=== PATIENT | female | born 1970 | race American Indian/Alaskan Native ===

== ENCOUNTER 2021-06-05 16:45 | Outpatient (CLI) | payer BC ==
--- NOTE | 2021-06-06 15:18 | Mammography Report ---
DIGITAL SCREENING MAMMOGRAM WITH CAD, 06/05/2021 CLINICAL INFORMATION / INDICATION: Routine screening mammography. SCREENING MAMMO Z12.31 TECHNIQUE: Digital bilateral 2D mammography was obtained in the craniocaudal and mediolateral obliqu e projections. This examination was interpreted with the benefit of Computer-Aided Detection analysis . COMPARISON: 04/19/2018 FINDINGS: Breast Density: There are scattered areas of fibroglandular density. No dominant mass, suspicious calcifications, or architectural distortion in either breast. There is a new vague density in the right breast, middle depth, best seen on the CC image. Overall th is appears to be along the lower inner breast. IMPRESSION: Right breast finding as above. Recommend follow-up compression imaging. Follow up recommendation: Special View: Spot BI-RADS Category 0: Incomplete. Needs additional imaging evaluation and/or prior mammograms for von rison. A "normal" or negative report should not discourage follow up or biopsy of a clinically significant f inding. A written summary of these findings will be mailed to the patient. The patient will be entered into a mammography reporting system which will generate a reminder letter for the patient's next appointmen t at the appropriate interval. The [employer] recommends yearly mammograms starting at age 40 and continuing as l sofia as a woman is in good health. Breast MRI is recommended for women with an approximate 20-25% or greater lifetime risk of breast cancer, including women with a strong family history of breast or ova naomie cancer or who have been treated for Hodgkin's disease. Signer Name: Jovon Solorzano MD Signed: 06/06/2021 3:14 PM Workstation Name: [id number]
== END 2021-06-05 16:46 | disposition home or self-care (01) ==
LOC: SPVWC 16:45
PROVIDERS: ATTEND Internal Medicine
DX: Z12.31 Encounter for screening mammogram for malignant neoplasm of breast (principal)
CPT/HCPCS: 77067

== ENCOUNTER 2021-07-01 09:48 | Outpatient (CLI) | payer BC ==
--- NOTE | 2021-07-01 11:26 | Mammography Report ---
RIGHT DIGITAL DIAGNOSTIC MAMMOGRAM WITH CAD , 07/01/2021 RIGHT LIMITED BREAST ULTRASOUND CLINICAL INFORMATION / INDICATION: ABNORMAL MAMMO R92.8 TECHNIQUE: Digital right mammographic imaging was performed. Spot compression views were obtained. Li mited ultrasound was performed. This examination was interpreted with the benefit of Computer-Aided D etection (CAD) analysis. COMPARISON: Recent mammogram 06/05/2021 FINDINGS: Breast Density: There are scattered areas of fibroglandular density. MAMMOGRAPHIC FINDINGS: There is a persistent benign-appearing density in the medial aspect of the rig ht breast, best seen on the cc view. The patient did have interval reduction surgery between the 2018 mammogram and the recent screening mammogram of 2020. The density with spot compression views is fel t to correspond to scarring from patient's reduction surgery. Ultrasound will be performed to ensure no underlying mass is present. ULTRASOUND FINDINGS: Targeted ultrasound evaluation was performed of the area of interest. No evide nce of solid mass or suspicious shadowing. The density in question on mammogram is most consistent wi th scarring from reduction mammoplasty. IMPRESSION: No mammographic or sonographic evidence of malignancy. Follow up recommendation: Routine yearly BI-RADS Category 2: Benign. A "normal" or negative report should not discourage follow up or biopsy of a clinically significant f inding. A written summary of these findings will be mailed to the patient. The patient will be entered into a mammography reporting system which will generate a reminder letter for the patient's next appointmen t at the appropriate interval. According to the [employer], yearly mammograms are recommended starting at age 40 and continuing as long as a woman is in good health. Breast MRI is recommended for women with an malvin roximately 20-25% or greater lifetime risk of breast cancer, including women with a strong family his tory of breast or ovarian cancer and women who have been treated for Hodgkin's disease. Signer Name: Zoie Nazario MD Signed: 07/01/2021 11:21 AM Workstation Name: [id number]
== END 2021-07-01 09:49 | disposition home or self-care (01) ==
LOC: SPVWC 09:48
PROVIDERS: ATTEND Internal Medicine
DX: R92.8 Other abnormal and inconclusive findings on diagnostic imaging of breast (principal)